=== PATIENT | male | born 1955 | race Caucasian/White ===

== ENCOUNTER 2016-09-11 14:13 | Observation (INO) | payer OTHER ==
[~2016-09-11] VITALS: Ht 170.2 cm; Wt 128.0 kg
[~2016-09-11 14:13] MED LIST: ASPIR 8181 M1 PO; ASPIR-LOW81 MG PO; ASPIRIN325 MG PO; Aspirin PO; CALTRATE 600 +1 EAC1 PO; CARVEDILOL12.5 MG PO; CARVEDILOL6.25 MG PO; COREG12.5 M1 PO; Colace PO; Coreg PO; FISH OIL 1,0001 EAC7 PO; GLUCOPHAGE500 MG PO; IMDUR60 MG PO; K-DUR20 MEQ PO; LASIX40 MG PO; LISINOPRIL20 MG PO; LO-DOSE ASPIRIN81 M1 PO; MELOXICAM15 MG PO; METFORMIN HCL500 MG PO; NAPROSYN500 MG PO; NAPROXEN500 MG PO; NITRO-DUR1 EAC3 TD; NITROGLYCERIN1 EAC4 TD; NITROSTAT0.4 MG SL; NOVOLOG (UNITS1 UNIT SC; OMEPRAZOLE40 M1 PO; OXYCODONE HCL5 MG PO; OXYCODONE5 MG PO; PRILOSEC40 MG PO; PRINIVIL10 MG PO; PROTONIX40 MG PO; RANITIDINE HCL150 MG PO; SIMVASTATIN20 MG PO; SIMVASTATIN40 MG PO; TOPROL XL100 MG PO; Tylenol Regular Stre PO; ZESTRIL,PRINIVI20 MG PO; ZOCOR20 MG PO; Zocor PO; oxyCODONE PO
[2016-09-11 16:22] LABS: MCHC 33.2 G/DL (30.0-36.0); MCV 90.5 FL (86-99); MEAN PLAT.VOLUME 8.7 uM^3 (9.0-12.4); PLATELET COUNT 239 K/uL (156-360); RBC DIS.WIDTH-CV 14.3 % (11.8-14.6); RBC DIS.WIDTH-SD 46.3 % (39-53); RED BLOOD COUNT 4.53 M/uL (4.00-5.50)
[2016-09-11 16:35] LABS: CHLORIDE 105 mEq/L (99-109); POTASSIUM 4.7 mEq/L (3.7-5.4); SODIUM 140 mEq/L (136-147)
[2016-09-11 16:37] LABS: GLUCOSE 150 mg/dL (70-99)
[2016-09-11 16:38] LABS: ANION GAP 9 MEQ/L (2-14)
[2016-09-11 16:41] LABS: GFR ESTIMATE (CALCULATED) > 59 mL/min/
[2016-09-11 16:42] LABS: TROP-I INTERPRETATION NEGATIVE; TROPONIN-I 0.02 ng/mL (0.0-0.30); UREA NITROGEN (BUN) 15 mg/dL (9-23)
[2016-09-11] MEDS ORDERED: ISOSORBIDE MONO60 MG PO (18:04)
[2016-09-11] MEDS ORDERED: COREG25 M1 PO (18:07)
[2016-09-11] MEDS ORDERED: LO-DOSE ASPIRIN81 M2 PO (18:09)
[2016-09-11] MEDS ORDERED: FISH OIL 1,001000 M2 PO (18:11)
[2016-09-11] MEDS ORDERED: NAPROXEN500 MG PO (18:17)
[2016-09-11 19:02] LABS: TOTAL BILIRUBIN 0.3 mg/dL (0.0-1.0)
[2016-09-11 19:03] LABS: ALKALINE PHOSPHATASE 62 IU/L (3-129)
[2016-09-11 19:06] LABS: DIRECT BILIRUBIN 0.2 mg/dL (0.0-0.3)
[2016-09-11 19:07] LABS: LIPASE 59 U/L (1.0-51.0)
[2016-09-11 21:46] VITALS: BP 145/78
[2016-09-11 22:54] LABS: TROP-I INTERPRETATION NEGATIVE; TROPONIN-I 0.02 ng/mL (0.0-0.30)
[2016-09-12 00:10] VITALS: BP 131/78
[2016-09-12 04:39] VITALS: BP 141/80
[2016-09-12 05:04] LABS: TROP-I INTERPRETATION NEGATIVE; TROPONIN-I 0.02 ng/mL (0.0-0.30)
[2016-09-12 07:54] LABS: POINT-OF-CARE METER ID UU14162513
[2016-09-12 08:04] VITALS: BP 153/77
[2016-09-12] MEDS ORDERED: PLAVIX75 MG PO (11:11)
[2016-09-12 11:50] VITALS: BP 136/71
[2016-09-12 12:10] VITALS: BP 143/84
[2016-09-12 12:11] LABS: POINT-OF-CARE METER ID UU14162513
== END 2016-09-12 12:13 | disposition home or self-care (01) ==
LOC: EME 14:13 → EDOF 18:25 → 5WEST 18:25
PROVIDERS: Hospitalist
DX: R07.89 Other chest pain (principal); I25.10 Atherosclerotic heart disease of native coronary artery without angina pectoris; I25.5 Ischemic cardiomyopathy; M79.602 Pain in left arm; I10 Essential (primary) hypertension; E78.00 Pure hypercholesterolemia, unspecified; E11.65 Type 2 diabetes mellitus with hyperglycemia; E66.01 Morbid (severe) obesity due to excess calories; E78.5 Hyperlipidemia, unspecified; I25.2 Old myocardial infarction; F32.9 Major depressive disorder, single episode, unspecified; Z95.1 Presence of aortocoronary bypass graft
CPT/HCPCS: 71020; 80048; 80076; 82948; 83690; 84484; 85027; 93005; 99281; 99285; G0378; J1815